=== PATIENT | male | born 1945 | race Two or more races ===

== ENCOUNTER 2021-08-25 06:40 | Outpatient (REF) | payer MEDICARE, SELFPAY ==
[2021-08-25 11:50] LABS: Alanine Aminotransferase 14 U/L (0-40); Albumin Level 4.1 g/dL (3.5-5.0); Alkaline Phosphatase 71 U/L (39-117); Anion Gap 12 (12-20); Aspartate Amino Transferase 14 U/L (5-37); Bilirubin Total 0.8 mg/dL (0.0-1.0); Blood Urea Nitrogen 17 mg/dL (9-16); Calcium 9.8 mg/dL (8.4-10.2); Carbon Dioxide 27 mmol/L (22-29); Chloride 106 mmol/L (96-108); Cholesterol 142 mg/dL; Estimated Glomerular Filt Rate > 60; Glucose Fasting 99 mg/dL (60-99); HDL Cholesterol 40 mg/dL; LDL Cholesterol Calculated 88 mg/dl; Potassium 4.6 mmol/L (3.3-5.1); Sodium 140 mmol/L (135-145); Total Protein 6.7 g/dL (6.5-8.0); Triglycerides 70 mg/dL
[2021-08-25 11:56] LABS: Appearance Urine CLEAR; Color Urine YELLOW; Glucose Urine UA NEG (NEG); Leukocyte Esterase Urine NEG (NEG); Nitrite Urine NEG (NEG); PH 6.5 (5.0-8.0); Urine Blood NEG (NEG); Urine Ketones NEG (NEG); Urine Protein NEG (NEG-TRACE)
[2021-08-25 12:15] LABS: Prostate Specific Antigen Scr 0.37 ng/mL (<0.05-4.0); TSH reflex Free T4 2.15 uIU/mL (0.32-4.0)
== END 2021-08-25 06:41 | disposition home or self-care (01) ==
LOC: HO.HMGCLDS 06:40
PROVIDERS: Visit Provider Nurse Practitioner Family
DX: Z12.5 Encounter for screening for malignant neoplasm of prostate (principal); N40.0 Benign prostatic hyperplasia without lower urinary tract symptoms; F41.9 Anxiety disorder, unspecified
CPT/HCPCS: 36415; 80053; 80061; 81003; 84153; 84443

== ENCOUNTER → 2021-12-02 11:56 | Outpatient (BNVA) | payer OTHER, SELFPAY | PROVIDERS: PCP Nurse Practitioner Family; Visit Provider Urology | DX: N40.1 Benign prostatic hyperplasia with lower urinary tract symptoms (principal); R35.1 Nocturia; R39.12 Poor urinary stream; Z79.899 Other long term (current) drug therapy | CPT/HCPCS: 99202 ==

== ENCOUNTER → 2022-02-02 08:50 | Outpatient (BNVA) | payer OTHER, SELFPAY | PROVIDERS: PCP Nurse Practitioner Family; Visit Provider Urology | DX: N40.0 Benign prostatic hyperplasia without lower urinary tract symptoms (principal); R39.12 Poor urinary stream; N40.1 Benign prostatic hyperplasia with lower urinary tract symptoms; R35.1 Nocturia | CPT/HCPCS: 52000; 99212 ==

== ENCOUNTER 2022-03-04 06:26 | Outpatient (REF) | payer OTHER, SELFPAY ==
[2022-03-04 11:59] LABS: Appearance Urine Clear; Color Urine Yellow; Glucose Urine UA Negative (Negative); Leukocyte Esterase Urine Negative (Negative); Nitrite Urine Negative (Negative); Specific Gravity - Urine 1.015 (1.005-1.025); Urine Blood Negative (Negative); Urine Ketones Negative (Negative); Urine Protein Negative (Neg-Trace)
[2022-03-04 12:05] LABS: Alanine Aminotransferase 17 U/L (0-40); Albumin Level 4.3 g/dL (3.5-5.0); Alkaline Phosphatase 78 U/L (39-117); Anion Gap 12 (12-20); Aspartate Amino Transferase 16 U/L (5-37); Bilirubin Total 0.8 mg/dL (0.0-1.0); Blood Urea Nitrogen 21 mg/dL (9-16); Calcium 9.9 mg/dL (8.4-10.2); Carbon Dioxide 27 mmol/L (22-29); Chloride 107 mmol/L (96-108); Cholesterol 151 mg/dL; Estimated Glomerular Filt Rate > 60; Glucose Fasting 99 mg/dL (60-99); HDL Cholesterol 41 mg/dL; LDL Cholesterol Calculated 100 mg/dl; Potassium 4.4 mmol/L (3.3-5.1); Sodium 142 mmol/L (135-145); Total Protein 6.7 g/dL (6.5-8.0); Triglycerides 54 mg/dL
[2022-03-04 12:30] LABS: TSH reflex Free T4 1.83 uIU/mL (0.32-4.0)
== END 2022-03-04 06:27 | disposition home or self-care (01) ==
LOC: HO.HMGCLDS 06:26
PROVIDERS: PCP Nurse Practitioner Family; Visit Provider Nurse Practitioner Family
DX: F41.9 Anxiety disorder, unspecified (principal)
CPT/HCPCS: 36415; 80053; 80061; 81003; 84443

== ENCOUNTER 2022-03-09 12:24 | Outpatient (REF) | payer OTHER, SELFPAY ==
--- NOTE | ~2022-03-09 | US_ITS ---
EXAMINATION: US PELVIS LIMITED (BLADDER) CLINICAL INFORMATION: Poor urinary stream. COMPARISON: None TECHNIQUE: Real-time imaging of the bladder. FINDINGS: BLADDER: Well distended and normal. Bilateral ureteral jets are demonstrated. Prevoid bladder volume is 289.6 mL. Postvoid bladder volume is 70.0 mL. The prostate gland protrudes into the base of the bladder and appears lobulated in contour. The prostate gland measures 4 x 3.5 x 3.6 cm. The prostate volume is 26.1 mL. US/US bladder IMPRESSION: Small 70 mL post void bladder residual.
== END 2022-03-09 12:25 | disposition home or self-care (01) ==
LOC: HO.US 12:24
PROVIDERS: Visit Provider Urology
DX: N40.1 Benign prostatic hyperplasia with lower urinary tract symptoms (principal); R39.12 Poor urinary stream
CPT/HCPCS: 76857

== ENCOUNTER → 2022-03-10 08:30 | Outpatient (BNVA) | payer OTHER, SELFPAY | PROVIDERS: PCP Nurse Practitioner Family; Visit Provider Urology | DX: N40.1 Benign prostatic hyperplasia with lower urinary tract symptoms (principal); R39.12 Poor urinary stream; R35.1 Nocturia | CPT/HCPCS: Q3014 ==

== ENCOUNTER 2022-04-12 05:42 | Day surgery (SDC) | payer OTHER, SELFPAY ==
[2022-04-05 16:47] VITALS: BMI 25.3
--- NOTE | 2022-04-09 09:17 | HO.ANESPROP2 ---
Documented by User: Taniya Juarez NP 04/09/22 09:19 HPI - Anesthesia Eval Consult details Narrative: 76yo M for ?Laser Ablation Prostate w/Green Light PMFSH Active Problems Active Problems: All Active Problems (Updated 03/03/22 @ 17:13 by Arpan Fernando, [facility]) Numbness of right hand (Acute) Weak urinary stream (Acute) Nocturia associated with benign prostatic hyperplasia (Acute) Insomnia (Acute) Right hip pain (Acute) Chest pressure (Acute) Screening PSA (prostate specific antigen) (Acute) Anxiety (Acute) BPH (benign prostatic hyperplasia) (Acute) Past Medical History Medical History (Updated 04/12/22 @ 06:24 by Quiana Vo RN) Anxiety Depression Left ankle injury Surgical History Surgical History (Updated 04/12/22 @ 06:24 by Quiana Vo RN) H/O hand surgery History of ankle surgery History of right hip replacement Social History Social History Housing: House Patient Tobacco Use Status: Never used Tobacco e-Cigarette/Vaping Use: Never Used Second Hand Smoke Exposure: No Use of substances other than those prescribed or required for medical reasons: No Are you DNR?: No Advance Directives: No Advance Directives Information Provided: Yes service: No Current occupational status: retired Cognitive needs: No Hearing needs: No Vision needs: No Meds Allergies Allergy/AdvReac Type Severity Reaction Status Date / Time No Known Allergies Allergy Verified 03/08/22 09:45 Exam Exam Date and Time: April 09, 2022 0917 Height,Weight and Vital Signs: Height 5 ft 6 in Weight 71.214 kg Pertinent Lab Results Pertinent Lab Results: Laboratory Tests 03/04/22 08:39 Sodium 142 Potassium 4.4 Chloride 107 Carbon Dioxide 27 BUN 21 H Creatinine 1.13 Narrative Narrative: EKG 10/2021 NSR @ 71 Assessment and Plan Assessment Anesthesia Assessment: Chart Reviewed Documented by User: Kacie Dial MD 04/12/22 07:54 [facility] Active Problems Active Problems: All Active Problems (Updated 03/03/22 @ 17:13 by Arpan Fernando [facility]) Numbness of right hand (Acute) Weak urinary stream (Acute) Nocturia associated with benign prostatic hyperplasia (Acute) Insomnia (Acute) Right hip pain (Acute) Chest pressure (Acute) Screening PSA (prostate specific antigen) (Acute) Anxiety (Acute) BPH (benign prostatic hyperplasia) (Acute) Denies HARPAL Past Medical History Medical History (Updated 04/12/22 @ 06:24 by Quiana Vo RN) Anxiety Depression Left ankle injury Family History Family history of problems with anesthesia: No Surgical History Surgical History (Updated 04/12/22 @ 06:24 by Quiana Vo RN) H/O hand surgery History of ankle surgery History of right hip replacement History of Problems with Anesthesia: No Social History Social History Housing: House Patient Tobacco Use Status: Never used Tobacco e-Cigarette/Vaping Use: Never Used Second Hand Smoke Exposure: No Use of substances other than those prescribed or required for medical reasons: No Are you DNR?: No Advance Directives: No Advance Directives Information Provided: Yes service: No Current occupational status: retired Cognitive needs: No Hearing needs: No Vision needs: No Meds Allergies Allergy/AdvReac Type Severity Reaction Status Date / Time No Known Allergies Allergy Verified 03/08/22 09:45 Exam Height,Weight and Vital Signs: Height 5 ft 6 in Weight 71.214 kg Vital Signs Temp Pulse Resp BP Pulse Ox O2 Del Method 04/12/22 06:40 98.2 F 94 16 145/63 H 98 Room Air Airway Mallampati Class: II TM Dist: >3cm Neck ROM: Full Partial: Lower Loose/Missing/Broken Teeth: No (Denies broken or loose teeth) Heart: RRR Lungs: CTAB Assessment and Plan Assessment Anesthesia Assessment: Anesthesia Plan Discussed Final Anesthetic Review Family History of Problems with Anesthesia: No History of Problems with Anesthesia: No NPO: Yes ASA Class: II Final Preanesthetic Review: No Changes in Pt Med Stat, Meds/Allgs Chart Reviewed, Consent Obtained/Reviewed and Anes Risks/Benef Reviewed Patient Risk: Low Procedure Risk: Low Assessment/Block/Sedation in SS: Assess/Block/Sedation-SS Anesthetic Plan Anesthetic Plan: GA Disposition: Standard PACU
[2022-04-12] VITALS (7 sets, daily range): BP systolic 132–145; BP diastolic 46–84; PULSE 71–94; RESP 16–18; TEMP 36.6–37; O2SAT 97–100; BMI 24.5
[2022-04-12] MEDS: Lactated Ringers 1,000 ML 100 ML IVCONT (06:51)
[2022-04-12] MEDS: Acetaminophen 325 MG TABLET 650 MG PO (07:33)
--- NOTE | 2022-04-12 07:35 | MHC.SHP ---
Pre-Procedural Eval Section A Date of Service: 04/12/22 The patient is an INPATIENT: No Changes since office visit: No Cold of Flu in the past 2 weeks, No New Medical Problems, No Changes in Medication and No Patient answered all questions The History & Physical has been completed within 30 days and I have reviewed it.: No Section B Chief Complaint: bph Details of Present Illness: laser prostaectomy Relevant Family History (Specify if Yes): No Relevant Social History: None Present Medications: see Short Stay Collaborative assessment Medical History: No relevant PMH History of Previous Operations: No relevant previous surgery Allergies: Allergies Allergy/AdvReac Type Severity Reaction Status Date / Time No Known Allergies Allergy Verified 03/08/22 09:45 Review of Systems Sugical H&P ROS: Negative: Constitution, Cardiovascular, Respiratory, Neurological, Psychiatric, Hem-Onc, Allergic/Immunologic, Gastrointestinal, Genitourinary, Musculoskeletal, Integumentary, Endocrine and Eyes/Ears/Nose/Throat Exam Surgical H&P Exam: Normal: HEENT, Normal: Heart, Normal: Lungs, Normal: Extremities, Normal: Abdomen, Normal: Skin and Normal: Neurological Plan Diagnosis/Plan: Unchanged (green light laser prostatectomy) I have reviewed the history and physical and performed a pertinent physical examination on my patient. No changes have occurred unless specified.
--- NOTE | 2022-04-12 08:31 | P.OP_ITS ---
Operative Note Operative Note Date of Service: 04/12/22 Narrative: PreOperative Diagnosis: Bladder outlet obstruction Post Operative Diagnosis: Bladder outlet obstruction Procedure: GreenLight Laser Enucleation of the prostate Surgeon: Dr Isael Muñoz Anesthesia: General Indications for procedure: bladder outlet obstruction History of bladder outlet obstruction. Treated with alpha-dana and other medications. Still with symptoms. On cystoscopy in office has trilobar prostate. Recommendation for prostate procedure with laser enucleation of prostate. It has been discussed. Focus was placed on development of retrograde examination which is a normal part of this procedure. Procedure: After informed consent was verified the patient was brought to the operating room and placed in a supine position. Anesthesia was administered per protocol. Patient was placed in modified dorsal lithotomy position and prepped and draped in a sterile fashion. Safety pause time-out was confirmed. Antibiotics have been given. Twenty-four Indonesian laser cystoscope was inserted per urethra. No abnormalities found the anterior posterior urethra. The bladder was filled on both ureteric orifices were seen in normal position away from our area of interest. Using a GreenLight laser settings of 80 w incisions were made at the 5 and 7 o'clock position. They were taken down and then laterally on each side. They were brought from the bladder neck down to the level of the veru. These defined the lateral aspects of the median lobe area. The median lobe was ablated and enucleated tissue removed. Once the median lobe area had been cleaned attention was directed to the lateral lobes. We started with the patient's left lateral lobe. Firstly the 05:00 o'clock groove was further developed. This was moved in the lateral position to undermine the tissue on the lateral side. Focus was then placed on the laser at the 1 o'clock position in developing a secondary groove down to the level of bladder fibers. The intervening tissue between these 2 grooves was removed with a combination of enucleation ablation working from the apex toward the bladder neck. A similar procedure was repeated on the patient's right-hand side. When this was completed debris and pieces of prostate removed from the bladder. Both ureteric orifices were reviewed again in shown to be patent in away from any areas of energy damage. The apical area was reviewed in any stray ooze was controlled. A 22 Indonesian 30 cc balloon Cuellar catheter was placed over stylet into the bladder. Clear efflux was obtained. 30 cc was placed in the balloon and gentle traction was placed. A snap was used to hold tension once the patient will be moved and transported. Once transportation its finish this novel be removed. A belladonna and opiate suppository was placed for postprocedure pain management. He tolerated procedure well was extubated in the operating and transferred in a stable condition to the recovery area. Total Power 120 kW, 19 min Pathology: Prostate tissue Drains: Cuellar catheter
[2022-04-12] MEDS: oxyCODONE HCl Immed Release 5 MG TABLET PO (08:59)
--- NOTE | 2022-04-12 10:57 | PC.NURSE ---
DISCHARGE INSTRUCTIONS GONE OVER WITH PATIENT'S SON AND PATIENT AGAIN WHEN SON ARRIVED.
== END 2022-04-12 10:57 | disposition home or self-care (01) ==
PROVIDERS: PCP Nurse Practitioner Family; Visit Provider Urology
PROC: (CPT 52648; principal; 2022-04-12 07:30)
DX: N40.1 Benign prostatic hyperplasia with lower urinary tract symptoms (principal); N32.0 Bladder-neck obstruction; R39.12 Poor urinary stream; R35.1 Nocturia
CPT/HCPCS: 52648; 88305; J1100; J1956; J2250; J2405; J3010

== ENCOUNTER → 2022-04-15 08:45 | Outpatient (BNVA) | payer OTHER, SELFPAY | PROVIDERS: PCP Nurse Practitioner Family; Visit Provider Urology | DX: N40.0 Benign prostatic hyperplasia without lower urinary tract symptoms (principal) | CPT/HCPCS: 51700; 51798 ==

== ENCOUNTER → 2022-04-16 11:28 | Outpatient (BNVA) | payer OTHER, SELFPAY | PROVIDERS: PCP Nurse Practitioner Family; Visit Provider Urology | DX: N40.0 Benign prostatic hyperplasia without lower urinary tract symptoms (principal) | CPT/HCPCS: 51702; 51798 ==

== ENCOUNTER → 2022-04-19 09:56 | Outpatient (BNVA) | payer OTHER, SELFPAY | PROVIDERS: PCP Nurse Practitioner Family; Visit Provider Urology | DX: N40.0 Benign prostatic hyperplasia without lower urinary tract symptoms (principal) | CPT/HCPCS: 51700; 51798 ==

== ENCOUNTER → 2022-05-21 10:36 | Outpatient (BNVA) | payer OTHER, SELFPAY | PROVIDERS: PCP Nurse Practitioner Family; Visit Provider Urology | DX: N39.0 Urinary tract infection, site not specified (principal); R39.15 Urgency of urination | CPT/HCPCS: Q3014 ==

== ENCOUNTER → 2022-06-29 13:10 | Outpatient (BNVA) | payer OTHER, SELFPAY | PROVIDERS: PCP Nurse Practitioner Family; Visit Provider Urology | DX: N40.1 Benign prostatic hyperplasia with lower urinary tract symptoms (principal); R39.15 Urgency of urination; R39.14 Feeling of incomplete bladder emptying | CPT/HCPCS: 51798; 99212 ==

== ENCOUNTER 2022-08-18 09:52 | Outpatient (REF) | payer OTHER, SELFPAY ==
--- NOTE | ~2022-08-18 | US_ITS ---
EXAMINATION: US RETROPERITONEAL LIMITED (RENAL ONLY) CLINICAL INFORMATION: Right flank pain. COMPARISON: None available. TECHNIQUE: Real-time imaging of the right kidney. FINDINGS: RIGHT KIDNEY: 10.4 x 5.3 x 6.1 cm (SAG x AP x TRV). The kidney is normal in size, contour, and echogenicity. Renal cortical thickness is normal. No hydronephrosis. Benign Bosniak class I hepatic cysts are present, the largest measuring 4.7 cm. No additional imaging or follow up is needed. There is a 3 mm lower pole echogenic focus present consistent with a nonobstructing calculus. US/US renal RT IMPRESSION: Nonobstructing 3 mm right lower pole calculus.
== END 2022-08-18 09:53 | disposition home or self-care (01) ==
LOC: HO.HMGCX 09:52
PROVIDERS: PCP Nurse Practitioner Family; Visit Provider Nurse Practitioner Family
DX: R10.9 Unspecified abdominal pain (principal)
CPT/HCPCS: 76775

== ENCOUNTER 2022-10-06 11:57 | Outpatient (REF) | payer OTHER, SELFPAY ==
--- NOTE | 2022-10-06 08:45 | EMG_ITS ---
Please see scanned EMG / Nerve Conduction Report. MTDD
== END 2022-10-06 11:58 | disposition home or self-care (01) ==
LOC: HO.NEURO 11:57
PROVIDERS: PCP Nurse Practitioner Family; Visit Provider Nurse Practitioner Family
DX: R20.0 Anesthesia of skin (principal); R20.2 Paresthesia of skin
CPT/HCPCS: 95885; 95913

== ENCOUNTER 2022-10-20 08:10 | Outpatient (REF) | payer OTHER, SELFPAY ==
[2022-10-20 11:33] LABS: MANUAL DIFF FLAG NO
[2022-10-20 11:36] LABS: Appearance Urine Clear; Color Urine Yellow; Glucose Urine UA Negative (Negative); Leukocyte Esterase Urine Negative (Negative); Nitrite Urine Negative (Negative); Urine Blood Negative (Negative); Urine Ketones Negative (Negative); Urine Protein Negative (Neg-Trace)
[2022-10-20 11:57] LABS: Basophils Absolute Auto 0.1 X10*3/uL (0.0-0.2); Basophils Percent Auto 0.9 % (0-2); Eosinophils Absolute Auto 0.3 X10*3/uL (0.0-0.4); Eosinophils Percent Auto 4.7 % (0-4); Hematocrit 39.7 % (42.0-52.0); Hemoglobin 13.2 g/dl (14.0-18.0); Imm Gran Abs Auto 0.02 X10*3/uL (0.00-0.03); Imm Gran Pct Auto 0.3 % (0.0-0.4); Lymphocytes Absolute Auto 1.8 X10*3/uL (1.2-4.9); Lymphocytes Percent Auto 28.8 % (20-40); Mean Corpuscular HGB Conc 33.2 g/dl (31.0-36.0); Mean Corpuscular Hemoglobin 30.5 pg (27.0-33.0); Mean Corpuscular Volume 91.7 fL (80.0-98.0); Mean Platelet Volume 10.1 fL (9.4-12.4); Monocytes Absolute Auto 0.5 X10*3/uL (0.1-1.2); Monocytes Percent Auto 7.4 % (2-11); Neutrophils Absolute Auto 3.7 x10*3/uL (2.0-8.3); Neutrophils Percent Auto 57.9 % (45-73); Platelet Count 237 X10*3/uL (160-400); Red Blood Count 4.33 X10*6/uL (4.60-5.80); Red Cell Distribution Width 12.8 % (11.0-16.0); White Blood Count 6.4 X10*3/uL (4.8-10.8)
[2022-10-20 12:30] LABS: Erythrocyte Sedimentation Rate 5 MM/HR (0-15)
[2022-10-20 12:35] LABS: Rheumatoid Factor < 13.0 IU/mL (<15.0)
[2022-10-20 12:46] LABS: Alanine Aminotransferase 16 U/L (0-40); Alkaline Phosphatase 79 U/L (39-117); Anion Gap 11 (12-20); Aspartate Amino Transferase 17 U/L (5-37); Bilirubin Total 0.8 mg/dL (0.0-1.0); Blood Urea Nitrogen 20 mg/dL (9-16); C Reactive Protein < 0.10 mg/dL (< or = 0.50); Calcium 9.4 mg/dL (8.4-10.2); Carbon Dioxide 27 mmol/L (22-29); Chloride 108 mmol/L (96-108); Estimated Glomerular Filt Rate > 60; Glucose Random 91 mg/dL (60-115); Potassium 4.8 mmol/L (3.3-5.1); Sodium 141 mmol/L (135-145); Total Protein 6.5 g/dL (6.5-8.0)
[2022-10-20 13:15] LABS: Prostate Specific Antigen 0.37 ng/mL (<0.05-4.0)
[2022-10-24 16:28] LABS: Cyclic Citrullinated Peptide <16 UNITS
[2022-10-27 13:28] LABS: Anti Nuclear Antibody Screen NEGATIVE (NEGATIVE)
== END 2022-10-20 08:11 | disposition home or self-care (01) ==
LOC: HO.HMGCLDS 08:10
PROVIDERS: Urology; PCP Nurse Practitioner Family; Visit Provider Nurse Practitioner Family
DX: Z12.5 Encounter for screening for malignant neoplasm of prostate (principal); R10.9 Unspecified abdominal pain; N40.0 Benign prostatic hyperplasia without lower urinary tract symptoms; M25.40 Effusion, unspecified joint
CPT/HCPCS: 36415; 80053; 81003; 84153; 85025; 85652; 86038; 86140; 86200; 86431

== ENCOUNTER → 2022-10-27 09:59 | Outpatient (BNVA) | payer OTHER, SELFPAY | PROVIDERS: PCP Nurse Practitioner Family; Visit Provider Urology | DX: N32.81 Overactive bladder (principal) | CPT/HCPCS: 51798; 99212 ==

== ENCOUNTER 2023-01-06 11:51 | Outpatient (AMB) | payer OTHER, SELFPAY ==
--- NOTE | 2023-01-06 11:32 | A.OFFVIS_ITS ---
Intake Intake Visit Reasons: cysto Intake Note: Patient is present for Cystoscopy Urology Med: Tolterodine Antibiotic Allergy: None Blood Thinner: None Pharmacy: [facility] Disposable Cystoscope used during Procedure LOT#: [id number] EXP: 10/08/24 Allergies No Known Allergies Allergy (Verified 10/27/22 10:14) HPI HPI Comments History of Present Illness Details Rl is a pleasant male. He is a patient of Dr. Key. He is seen for the following urologic issues. - lower urinary tract symptoms - overactive bladder Cystoscopy with glomerulation consistent with possible IC versus OAB Continue Tolterodine 4 mg Add tadalafil 5 mg Lower urinary tract symptoms Prior therapy doxazosin 8 mg with finasteride Initial symptoms include nocturia up to 3 times per night, weaker stream, does have complete bladder emptying PVR 0 PSA 08/25 - 0.4 - suggestive of tight bladder neck, 10/26 0.4 04/27 Greenlight laser - difficulty voiding post procedure with constipation PFSH Medical History Anxiety Depression Left ankle injury Surgical History H/O hand surgery History of ankle surgery History of right hip replacement Social History Housing: House Patient Tobacco Use Status: Never used Tobacco e-Cigarette/Vaping Use: Never Used Second Hand Smoke Exposure: No service: No Current occupational status: retired Cognitive needs: No Hearing needs: No Vision needs: No Review of Systems Const Denies chills and Denies fever(s) Card Reports no additional complaints and Denies syncope Resp Denies cough GI Denies abdominal pain and Denies heartburn Reports as per HPI and Denies change in libido Neuro Denies syncope Psych Denies change in libido Endo Denies change in libido Physical Exam Const General: cooperative, healthy appearing, comfortable and no acute distress Orientation/consciousness: patient oriented x3 HEENT Face and sinus: Yes normal facial exam Mouth: moist mucous membranes Neck Neck: Yes normal visual inspection, Yes full ROM and Yes trachea midline Chest Chest palpation & inspection: normal inspection of the chest Resp Effort & Inspection: normal respiratory effort, able to speak in complete sentences and no respiratory distress GI Inspection: Yes normal to inspection Back/Spine/Pelvis Cervical Spine: normal cervical lordosis Thoracic/Lumbar Spine: thoracic and lumbar spine normal to inspection Skin General skin exam: no rashes or lesions noted Neuro General: patient oriented x3, gait normal, tone normal and moves all extremities Extrem General: Yes normal to inspection and Yes capillary refill normal Office Procedures Cystoscopy Consent Discussed risk and benefit or proposed procedure with the patient. Information consent for procedure given to the patient. Discussed technical aspects, risks, benefits and alternatives in full. Addressed all of the patient's questions and concerns regarding the procedure. The patient demonstrated knowledge and understanding. They wish to proceed with this procedure. Preparation The patient was prepped in the usual manner. A asbestos microscopist was present and in the room. Genitalia was prepped with betadine solution in a sterile manner. Lidocaine Jelly 2% was placed into the urethra and 16Fr flexible Olympus cystoscope was inserted into the meatus after adequate lubrication. Procedure Meatus circumcised Urethra anterior and posterior urethra Prostatic Urethra TURP defect Bladder examination with retroflexion of cystoscope Bladder Orifices normal shape and position Bladder Capacity medium Trabeculations grade 2 Cellule Formation - Diverticulum Formation - Mucosal Erythema glomerulations with small vessels Bladder Tumor - [id number] Procedure code (CPT) selection complete Office Meds lidocaine HCl Performing Provider: Isael Muñoz MD Administered by: Lisa Zuniga RN on 01/06/23 11:36 Dose Route Admin Location Lot Number Expiration Date [facility] [employer] 10 mL intra-urethral nitrofurantoin monohyd/m-cryst 100 mg Performing Provider: Isael Muñoz MD Administered by: Lisa Zuniga RN on 01/06/23 11:36 Dose Route Admin Location Lot Number Expiration Date [facility] [employer] 100 mg PO Assessment & Plan Assessment & Plan (1) Overactive bladder: Code(s): N32.81 - Overactive bladder (2) Urinary urgency: Code(s): R39.15 - Urgency of urination Plan Trial tadalafil with tolterodine Orders: Orders AMB Cystoscopy Today N40.0 - Benign prostatic hyperplasia without lower urinary tract symptoms AMB Urinalysis Automated Today Z13.9 - Encounter for screening, unspecified Medications: New tadalafil [id number] [facility] [id number] Member [id number] 5 mg PO DAILY 90 tabs 1RF sexual activity 90 days N32.81 - Overactive bladder Patient Instructions: Imaging studies, laboratory and physical exam results were discussed and reviewed in detail. No major barriers to patient understanding were identified. An opportunity to ask questions regarding the treatment plan was provided. All questions were answered. The patient expressed understanding and agreement with the above treatment plan. The patient is aware they should contact our office by phone for worsening of their current condition or the appearance of new urologic symptoms. Compliance is encouraged with any medications and followup testing that is ordered. It is a privilege to participate in the urologic care of your patient. If you have any questions or concerns regarding treatment for the above conditions, or other urologic issues, please do not hesitate to contact me. The office telephone contact is [phone]. This note is constructed using voice recognition software. While every effort has been made to ensure accuracy justice professor errors may have been included. Yours sincerely, Dr Isael Muñoz MD, [place] [facility] - Urology Providers of Expert, Compassionate Care for the Genitourinary System Coding Level of Care Code Est Pt Level 4 (37253) Diagnoses Overactive bladder N32.81 Urinary urgency R39.15 CPT Codes Cystoscopy - CPT: 71322-[id number] ([id number])
== END 2023-01-06 13:35 | disposition home or self-care (01) ==
LOC: HO.HUSH 11:51
PROVIDERS: PCP Nurse Practitioner Family; Visit Provider Urology
DX: N32.81 Overactive bladder (principal); R39.15 Urgency of urination; N40.0 Benign prostatic hyperplasia without lower urinary tract symptoms
CPT/HCPCS: 52000

== ENCOUNTER → 2023-01-06 11:51 | Outpatient (BNVA) | payer OTHER, SELFPAY | PROVIDERS: PCP Nurse Practitioner Family; Visit Provider Urology | DX: N32.81 Overactive bladder (principal); R39.15 Urgency of urination | CPT/HCPCS: 52000 ==

== ENCOUNTER 2023-01-28 08:07 | Outpatient (REF) | payer OTHER, SELFPAY ==
[2023-01-28 11:07] LABS: MANUAL DIFF FLAG NO
[2023-01-28 11:30] LABS: Basophils Absolute Auto 0.1 X10*3/uL (0.0-0.2); Basophils Percent Auto 0.9 % (0-2); Eosinophils Absolute Auto 0.2 X10*3/uL (0.0-0.4); Eosinophils Percent Auto 3.7 % (0-4); Hemoglobin 13.1 g/dl (14.0-18.0); Imm Gran Abs Auto 0.01 X10*3/uL (0.00-0.03); Imm Gran Pct Auto 0.2 % (0.0-0.4); Lymphocytes Absolute Auto 1.9 X10*3/uL (1.2-4.9); Mean Corpuscular HGB Conc 32.8 g/dl (31.0-36.0); Mean Corpuscular Hemoglobin 30.2 pg (27.0-33.0); Mean Corpuscular Volume 92.2 fL (80.0-98.0); Mean Platelet Volume 10.1 fL (9.4-12.4); Monocytes Absolute Auto 0.5 X10*3/uL (0.1-1.2); Monocytes Percent Auto 8.4 % (2-11); Neutrophils Absolute Auto 3.1 x10*3/uL (2.0-8.3); Neutrophils Percent Auto 53.8 % (45-73); Platelet Count 209 X10*3/uL (160-400); Red Blood Count 4.34 X10*6/uL (4.60-5.80); Red Cell Distribution Width 13.2 % (11.0-16.0); White Blood Count 5.7 X10*3/uL (4.8-10.8)
[2023-01-28 12:19] LABS: Iron 74 mcg/dL (45-160); Percent Iron Saturation 31 % (15-50); Total Iron Binding Capacity 240 mcg/dL (228-428); Unsaturated Iron Binding 166 ug/dL
[2023-01-28 12:34] LABS: Ferritin 77 ng/mL (20-250)
[2023-01-30 20:39] LABS: Hemoglobin 12.8 g/dL (13.2-17.1); MCH 29.8 pg (27.0-33.0); MCV 90.9 fL (80.0-100.0); RBC 4.29 Million/uL (4.20-5.80); RDW 13.1 % (11.0-15.0)
== END 2023-01-28 08:08 | disposition home or self-care (01) ==
LOC: HO.HMGCLDS 08:07
PROVIDERS: PCP Nurse Practitioner Family; Visit Provider Nurse Practitioner Family
DX: D64.9 Anemia, unspecified (principal)
CPT/HCPCS: 36415; 82728; 83020; 83540; 85014; 85018; 85025; 85041

== ENCOUNTER 2023-02-21 10:07 | Outpatient (AMB) | payer OTHER, SELFPAY ==
[2023-02-21 10:21] VITALS: BP 132/68; PULSE 63; O2SAT 97; BMI 26.8
--- NOTE | 2023-02-21 10:21 | A.OFFPC_ITS ---
Vital Signs 02/21/23 10:21 Height 5 ft 6 in Weight 166 lb 4 oz BMI 26.8 BP 132/68 Blood Pressure Location Lt brachial Position Sitting Pulse 63 Pulse Source Pulse Oximeter Pulse Oximetry (%) 97 Oxygen Delivery Method Room Air Intake Visit Reasons: 6 month follow r/s from 01/31/23 Allergies No Known Allergies Allergy (Verified 02/21/23 12:12) Medication List - Last Reconciled 02/21/23 by GRAHAM Lopez losartan 50 mg PO BID tadalafil 5 mg PO DAILY 90 days tolterodine ER 4 mg PO DAILY 90 days Tobacco use date assessed: 02/21/23 Fall risk assessment: No Falls in past year Last assessed Fall Risk: 02/21/23 Dental Screening Dental Screen Date: 02/21/23 Did you have a dental visit in the last 12 months?: Yes Did you have a dental problem in the last 6 months where you did not have access to dental care?: No Was dental information given to patient?: Patient has dentist HPI 6 month follow r/s from 01/31/23 HPI Details HTN: BP is stable, managed with losartan 50mg bid. Will continue to monitor (pt has a cuff at home). Denies chest pain, shortness of breath, headache, dizziness, and blurred vision. Anxiety: Pt reports doing well overall, though he reports some anxiety about an upcoming flight. Denies any SI and HI. [facility] Medical History (Updated 02/21/23 @ 10:47 by GRAHAM Lopez) Anxiety Left ankle injury Depression Surgical History H/O hand surgery History of right hip replacement History of ankle surgery Social History Housing: House Patient Tobacco Use Status: Never used Tobacco e-Cigarette/Vaping Use: Never Used Second Hand Smoke Exposure: No service: No Current occupational status: retired Cognitive needs: No Hearing needs: No Vision needs: No Questionnaire Thrive Questionnaire Date Thrive assessed: 09/27/22 INESSA-7 AMB Questionnaire INESSA-7 Date INESSA - 7 assessed: 09/27/22 Source: Developed by Drs. Daniel L. MohitSadie nielsen Kurt Kroenke and colleagues, with an educational marcella from [employer]. Review of Systems Const Reports as per HPI Physical exam (Primary Care) Vital Signs: Last Vital Signs Pulse 63 02/21/23 10:21 BP 132/68 02/21/23 10:21 Pulse Ox 97 02/21/23 10:21 Oxygen Delivery Method Room Air 02/21/23 10:21 BMI result Body Mass Index 26.8 Tobacco/Smoking Status: Tobacco use Status Tobacco use date assessed 02/21/23 02/21/23 10:27 Patient Tobacco Use Status Never used Tobacco 02/21/23 10:27 e-Cigarette/Vaping Use Never Used 02/21/23 10:27 Thrive Assessment: Date of Thrive Assessment Date Thrive assessed 09/27/22 02/21/23 10:27 Const General: cooperative Orientation/consciousness: patient oriented x3 Resp Effort & Inspection: normal respiratory effort Auscultation: clear to auscultation bilaterally Cardio Rate: regular rate Rhythm: regular rhythm Heart sounds: S1 normal heart sound present and S2 normal heart sound present Neuro General: patient oriented x3 Psych Appearance: grossly normal Mental Status: mental status grossly normal Speech and movement: Normal speech and movement present Affect: normal affect Attitude: cooperative Thought process: Normal thought process present Thought content: Normal thought content present Insight: Good insight present (Psych) Judgement: Good judgement present (Psych) Assessment and Plan Assessment & Plan (1) Anxiety: Code(s): F41.9 - Anxiety disorder, unspecified Plan: Labs ordered (2) HTN (hypertension): Code(s): I10 - Essential (primary) hypertension Plan: Labs ordered Plan The patient agreed to the use of a medical legal investigator for this encounter. Scribed for GRAHAM Cabezas by Candice Reyes medical legal investigator, on 02/21/2023 at 10:45 EST. Orders: Orders Lipid Panel Today F41.9 - Anxiety disorder, unspecified, I10 - Essential (primary) hypertension TSH reflex Free T4 Today F41.9 - Anxiety disorder, unspecified, I10 - Essential (primary) hypertension Complete Blood Count Auto Diff Today F41.9 - Anxiety disorder, unspecified, I10 - Essential (primary) hypertension [place]. Panel Fast Today F41.9 - Anxiety disorder, unspecified, I10 - Essential (primary) hypertension UA CC w/rflx Micro + Cult Today F41.9 - Anxiety disorder, unspecified, I10 - Essential (primary) hypertension Coding Level of Care Code Est Pt Level 3 (73799) Diagnoses Anxiety F41.9 HTN (hypertension) I10
== END 2023-02-21 11:07 | disposition home or self-care (01) ==
PROVIDERS: PCP Nurse Practitioner Family; Visit Provider Nurse Practitioner Family
DX: F41.9 Anxiety disorder, unspecified (principal); I10 Essential (primary) hypertension
CPT/HCPCS: 99213

== ENCOUNTER 2023-04-13 11:00 | Outpatient (AMB) | payer OTHER, SELFPAY ==
--- NOTE | 2023-04-13 11:06 | A.OFFVIS_ITS ---
Intake Intake Visit Reasons: 3 month follow up Intake Note: Patient is Present for Telephone Follow Up Urology Med: Tadalafil, Tolterodine Antibiotic Allergy: None Blood Thinner: None Allergies No Known Allergies Allergy (Verified 04/13/23 11:08) Medication List - Last Reconciled 04/13/23 by Isael Muñoz MD betamethasone valerate 0.1% 1 appl topical BID losartan 50 mg PO BID tadalafil 5 mg PO DAILY 90 days tolterodine ER 4 mg PO DAILY 90 days HPI HPI Comments History of Present Illness Details Rl is a pleasant male. He is a patient of Dr. Key. He is seen for the following urologic issues. - lower urinary tract symptoms - overactive bladder Telemedicine Evaluation 15 min Consultation Outsell Brendon Video attempted Follow-up from addition of tadalafil with tolterodine for possible IC Did very well Would like to continue 6 month prescription provided 02/26 Cystoscopy with glomerulation consi stent with possible IC versus OAB Lower urinary tract symptoms Prior therapy doxazosin 8 mg with finasteride Initial symptoms include nocturia up to 3 times per night, weaker stream, does have complete bladder emptying PVR 0 PSA 08/25 - 0.4 - suggestive of tight bladder neck, 10/26 0.4 04/27 Greenlight laser - difficulty void ing post procedure with constipation PFSH Medical History Anxiety Left ankle injury Depression Surgical History H/O hand surgery History of right hip replacement History of ankle surgery Social History Housing: House Patient Tobacco Use Status: Never used Tobacco e-Cigarette/Vaping Use: Never Used Second Hand Smoke Exposure: No service: No Current occupational status: retired Cognitive needs: No Hearing needs: No Vision needs: No Review of Systems Const All systems reviewed & are unremarkable except as noted in HPI and below Reports no additional complaints Resp Reports no additional complaints GI Reports no additional complaints Reports as per HPI Musc Reports no additional complaints Physical Exam Telemedicine evaluation Appropriate responses Regular breathing rate and rhythm HEENT Head: Yes normal to inspection Ears: hearing grossly normal bilaterally Eyes General: appearance normal, both eyes and all related structures Neck Neck: Yes normal visual inspection Chest Chest palpation & inspection: normal inspection of the chest Resp Effort & Inspection: normal respiratory effort and able to speak in complete sentences Assessment & Plan Assessment & Plan (1) Overactive bladder: Code(s): N32.81 - Overactive bladder (2) Urinary urgency: Code(s): R39.15 - Urgency of urination (3) BPH (benign prostatic hyperplasia): Code(s): N40.0 - Benign prostatic hyperplasia without lower urinary tract symptoms Plan Six month follow-up Medications: Changed From tadalafil [id number] [facility] [id number] Member [id number] 5 mg PO DAILY 90 tabs 1RF sexual activity 90 days N32.81 - Overactive bladder To tadalafil 5 mg PO DAILY 90 tabs 1RF sexual activity 90 days N32.81 - Overactive bladder Refilled tolterodine ER 4 mg PO DAILY 90 caps 1RF 90 days N32.81 - Overactive bladder Patient Instructions: Imaging studies, laboratory and physical exam results were discussed and reviewed in detail. No major barriers to patient understanding were identified. An opportunity to ask questions regarding the treatment plan was provided. All questions were answered. The patient expressed understanding and agreement with the above treatment plan. The patient is aware they should contact our office by phone for worsening of their current condition or the appearance of new urologic symptoms. Compliance is encouraged with any medications and followup testing that is ordered. It is a privilege to participate in the urologic care of your patient. If you have any questions or concerns regarding treatment for the above conditions, or other urologic issues, please do not hesitate to contact me. The office telephone contact is [phone]. This note is constructed using voice recognition software. While every effort has been made to ensure accuracy cutting machine fixer errors may have been included. Yours sincerely, Dr Isael Muñoz MD, [place] [facility] - Urology Providers of Expert, Compassionate Care for the Genitourinary System Telehealth Telehealth Location of provider rendering services: practice address Location of patient: address on file Patient Identification confirmed using: Name, : Yes Telehealth method: voice only Patient verbally consented to treatment: Yes Patient verbally consented to billing insurance company: Yes Patient informed of any privacy concerns related to visit: Yes Coding Level of Care Code Tele Est Pt Level 3 (25013) Diagnoses Overactive bladder N32.81 Urinary urgency R39.15 BPH (benign prostatic hyperplasia) N40.0
== END 2023-04-13 12:09 | disposition home or self-care (01) ==
LOC: HO.HUSH 11:00
PROVIDERS: PCP Nurse Practitioner Family; Visit Provider Urology
DX: N32.81 Overactive bladder (principal); R39.15 Urgency of urination; N40.0 Benign prostatic hyperplasia without lower urinary tract symptoms
CPT/HCPCS: 99213

== ENCOUNTER → 2023-04-13 11:00 | Outpatient (BNVA) | payer OTHER, SELFPAY | PROVIDERS: PCP Nurse Practitioner Family; Visit Provider Urology ==

== ENCOUNTER 2023-09-21 15:55 | Outpatient (AMB) | payer OTHER, SELFPAY ==
[2023-09-21 16:03] VITALS: BP 118/72; PULSE 72; O2SAT 95; BMI 27.8
--- NOTE | 2023-09-21 16:03 | A.OFFPC_ITS ---
Vital Signs 09/21/23 16:03 Height 5 ft 6 in Weight 172 lb 6 oz BMI 27.8 BP 118/72 Blood Pressure Location Lt brachial Position Sitting Pulse 72 Pulse Source Pulse Oximeter Pulse Oximetry (%) 95 Oxygen Delivery Method Room Air Intake Visit Reasons: Annual PE Intake Note: Patient here for physical exam, pt would like to talk about right leg pain/swelling, having difficulty bending knee. cologuard: 2022 Allergies No Known Allergies Allergy (Verified 09/21/23 17:07) Medication List - Last Reconciled 09/21/23 by GRAHAM Lopez betamethasone valerate 0.1% 1 appl topical BID losartan 50 mg PO ONCE trazodone 100 mg PO BEDTIME PRN 90 days Tobacco use date assessed: 09/21/23 Fall risk assessment: No Falls in past year Last assessed Fall Risk: 09/21/23 Dental Screening Dental Screen Date: 09/21/23 Did you have a dental visit in the last 12 months?: Yes Did you have a dental problem in the last 6 months where you did not have access to dental care?: No Was dental information given to patient?: Patient has dentist HPI Annual PE HPI Details Pt is here for a PE. Will order labs. Cologuard is up to date. Pt sees urology for his PSA. Pt has swelling to his right calf/RLE. Will order US to r/o DVT. Pt also c/o right knee pain with swelling. Will order XR. Right flank pain reported, previous US was neg (small kidney stone noted). ? muscular, will repeat US due to Hx of kidney stones. NOTE: confusion with losartan dose, will contact pharmacy [facility] Medical History Anxiety Left ankle injury Depression Surgical History H/O hand surgery History of right hip replacement History of ankle surgery Social History Housing: House Patient Tobacco Use Status: Never used Tobacco e-Cigarette/Vaping Use: Never Used Second Hand Smoke Exposure: No service: No Current occupational status: retired Cognitive needs: No Hearing needs: No Vision needs: No Questionnaire PHQ-9 Over the last 2 weeks, how often have you been bothered by any of the following problems? 63506 - PHQ-9 Billing: Patient declined-do not bill Source: Developed by Drs. Daniel Rueda, Sadie Reynolds, Jarvis Jacques and colleagues, with an educational marcella from [employer]. Thrive Questionnaire Date Thrive assessed: 09/27/22 AUDIT C Alcohol Use Questionnaire (AUDIT-C) 1. How often do you have a drink containing alcohol?: Never 3. How often do you have six or more drinks on one occasion?: Never Total Score: 0 Score Reviewed/Action Taken: No INESSA-7 AMB Questionnaire INESSA-7 Date INESSA - 7 assessed: 09/27/22 Source: Developed by Drs. Daniel Rueda, Sadie Reynolds, Jarvis Jacques and colleagues, with an educational marcella from [employer]. INESSA-7 Assessment Billing INESSA-7 Assessment Tool: pt declined-do not bill Review of Systems Const Denies chills and Denies fever(s) Eyes Denies blurry vision ENT Denies vertigo, Denies dizziness and Denies sore throat Card Denies chest pain at rest, Denies chest pain with activity, Denies diaphoresis, Denies dyspnea and Denies dyspnea on exertion Resp Denies cough, Denies dyspnea, Denies dyspnea on exertion and Denies wheezing GI Denies abdominal pain, Denies melena, Denies hematochezia, Denies constipation, Denies diarrhea and Denies loose stools Denies hematuria Musc Denies numbness and Denies tingling Skin/Breast Denies lesions Neuro Denies vertigo, Denies dizziness, Denies numbness and Denies tingling Psych Denies anxiety, Denies depression, Denies homicidal ideation, Denies suicidal ideation and Denies other (substance abuse) Aller/Immun Denies wheezing Physical exam (Primary Care) Vital Signs: Last Vital Signs Pulse 72 09/21/23 16:03 BP 118/72 09/21/23 16:03 Pulse Ox 95 09/21/23 16:03 Oxygen Delivery Method Room Air 09/21/23 16:03 BMI result Body Mass Index 27.8 Tobacco/Smoking Status: Tobacco use Status Tobacco use date assessed 09/21/23 09/21/23 16:17 Patient Tobacco Use Status Never used Tobacco 09/21/23 16:04 e-Cigarette/Vaping Use Never Used 09/21/23 16:04 Thrive Assessment: Date of Thrive Assessment Date Thrive assessed 09/27/22 09/21/23 16:04 Const General: cooperative Nutritional Appearance: well nourished Orientation/consciousness: patient oriented x3 HENMT Head: Yes normal to inspection, Yes normocephalic and Yes atraumatic Ears: TM's normal bilaterally Eyes General: appearance normal, both eyes and all related structures Alignment and Position: alignment normal and position normal Neck Neck: Yes normal visual inspection and Yes no lymphadenopathy Thyroid: Thyroid normal Resp Effort & Inspection: normal respiratory effort Auscultation: clear to auscultation bilaterally Cardio Rate: regular rate Rhythm: regular rhythm Heart sounds: S1 normal heart sound present, S2 normal heart sound present and no murmurs GI Palpation (GI): Soft to palpation and nontender Auscultation: normal bowel sounds General: Yes CVA tenderness on the right Male General Exam: Yes normal external exam Penis: normal penis Scrotum: scrotum normal, testes descended bilaterally and no inguinal hernias Testes: no testicular mass Back/Spine/Pelvis Back: CVA tenderness Skin Rashes: no rashes Neuro General: patient oriented x3, moves all extremities, no focal motor deficits and deep tendon reflexes 2+ bilaterally Romberg Test: Negative Extrem Other: minor calf pain w palpation of right calf, swelling noted, swelling also noted to right knee. neg mccmurrays, neg lachmans, tenderness to posterior and anterior patella with extension and flexion Right lower extremity: edema Details: 1+ Left lower extremity: edema (trace) Psych Appearance: grossly normal Mental Status: mental status grossly normal Speech and movement: Normal speech and movement present Affect: normal affect Attitude: cooperative Thought process: Normal thought process present Thought content: Normal thought content present Insight: Good insight present (Psych) Judgement: Good judgement present (Psych) Assessment and Plan Assessment & Plan (1) Swelling of right lower extremity: Code(s): M79.89 - Other specified soft tissue disorders Plan: venous doppler ordered to r/o dvt (2) Right knee pain: Code(s): M25.561 - Pain in right knee Plan: xr ordered (3) Right flank pain: Code(s): R10.9 - Unspecified abdominal pain Plan: US ordered Orders: Orders US venous duplex LE RT Today M79.89 - Other specified soft tissue disorders XR knee RT 2V Today M25.561 - Pain in right knee US renal RT Today R10.9 - Unspecified abdominal pain Medications: Changed From losartan 50 mg PO BID 180 tabs 1RF To losartan 100 mg (2 x 50 mg) PO BID 180 tabs 1RF From trazodone may take up to 2 tabs at night, prn for insomnia (can cause constipation) 100 mg PO BEDTIME PRN sleep To trazodone may take up to 2 tabs at night, prn for insomnia (can cause constipation) 100 mg PO BEDTIME 90 days PRN 90 tabs 0RF sleep From losartan 100 mg (2 x 50 mg) PO BID 180 tabs 1RF To losartan 50 mg PO ONCE 90 tabs 1RF From trazodone may take up to 2 tabs at night, prn for insomnia (can cause constipation) 100 mg PO BEDTIME 90 days PRN 90 tabs 0RF sleep To trazodone 100 mg PO BEDTIME PRN 90 tabs 0RF sleep 90 days Refilled losartan 50 mg PO ONCE 90 tabs 1RF Coding Level of Care Code Est Pt Prev Care >65y(94283) Diagnoses Swelling of right lower extremity M79.89 Right knee pain M25.561 Right flank pain R10.9
== END 2023-09-21 17:40 | disposition home or self-care (01) ==
PROVIDERS: PCP Nurse Practitioner Family; Visit Provider Nurse Practitioner Family
DX: Z00.00 Encounter for general adult medical examination without abnormal findings (principal); M79.89 Other specified soft tissue disorders; M25.561 Pain in right knee; R10.9 Unspecified abdominal pain
CPT/HCPCS: 99397

== ENCOUNTER 2023-09-22 06:05 | Outpatient (REF) | payer OTHER, SELFPAY ==
[2023-09-22 10:26] LABS: MANUAL DIFF FLAG NO
[2023-09-22 10:38] LABS: Appearance Urine Clear; Color Urine Yellow; Glucose Urine UA Negative (Negative); Leukocyte Esterase Urine Negative (Negative); Nitrite Urine Negative (Negative); Specific Gravity - Urine 1.025 (1.005-1.025); Urine Blood Negative (Negative); Urine Ketones Negative (Negative); Urine Protein Negative (Neg-Trace)
[2023-09-22 10:40] LABS: Basophils Absolute Auto 0.1 X10*3/uL (0.0-0.2); Basophils Percent Auto 0.9 % (0-2); Eosinophils Absolute Auto 0.4 X10*3/uL (0.0-0.4); Eosinophils Percent Auto 5.5 % (0-4); Hematocrit 41.2 % (42.0-52.0); Hemoglobin 13.6 g/dl (14.0-18.0); Imm Gran Abs Auto 0.02 X10*3/uL (0.00-0.03); Imm Gran Pct Auto 0.3 % (0.0-0.4); Lymphocytes Absolute Auto 2.6 X10*3/uL (1.2-4.9); Lymphocytes Percent Auto 32.8 % (20-40); Mean Corpuscular Hemoglobin 30.2 pg (27.0-33.0); Mean Corpuscular Volume 91.6 fL (80.0-98.0); Mean Platelet Volume 9.6 fL (9.4-12.4); Monocytes Absolute Auto 0.6 X10*3/uL (0.1-1.2); Monocytes Percent Auto 7.4 % (2-11); Neutrophils Absolute Auto 4.3 x10*3/uL (2.0-8.3); Neutrophils Percent Auto 53.1 % (45-73); Platelet Count 243 X10*3/uL (160-400); Red Cell Distribution Width 13.2 % (11.0-16.0)
[2023-09-22 10:57] LABS: Alanine Aminotransferase 13 U/L (0-40); Albumin Level 4.1 g/dL (3.5-5.0); Alkaline Phosphatase 78 U/L (39-117); Anion Gap 8 (12-20); Aspartate Amino Transferase 21 U/L (5-37); Bilirubin Total 0.9 mg/dL (0.0-1.0); Blood Urea Nitrogen 24 mg/dL (9-16); Calcium 9.2 mg/dL (8.4-10.2); Carbon Dioxide 27 mmol/L (22-29); Chloride 109 mmol/L (96-108); Cholesterol 153 mg/dL (<200); Estimated Glomerular Filt Rate > 60; Glucose Fasting 88 mg/dL (60-99); HDL Cholesterol 37 mg/dL (>40); LDL Cholesterol Calculated 105 mg/dL (<100); Potassium 4.2 mmol/L (3.3-5.1); Sodium 140 mmol/L (135-145); Total Protein 6.9 g/dL (6.5-8.0); Triglycerides 59 mg/dL (<150)
[2023-09-22 11:00] LABS: TSH reflex Free T4 2.18 uIU/mL (0.32-4.0)
== END 2023-09-22 06:06 | disposition home or self-care (01) ==
LOC: HO.HMGCLDS 06:05
PROVIDERS: PCP Nurse Practitioner Family; Visit Provider Nurse Practitioner Family
DX: Z13.89 Encounter for screening for other disorder (principal)
CPT/HCPCS: 36415; 80053; 80061; 81003; 84443; 85025

== ENCOUNTER 2023-09-22 15:25 | Outpatient (REF) | payer OTHER, SELFPAY ==
--- NOTE | ~2023-09-22 | US_ITS ---
EXAMINATION: ULTRASOUND OF THE RIGHT KIDNEY CLINICAL INFORMATION: Right flank pain COMPARISON: Ultrasound of the right kidney 08/18/2022 TECHNIQUE: Ultrasound was limited to the right kidney only. The left kidney and the bladder were not evaluated FINDINGS: The left kidney measures 11.0 x 5.6 x 3.4 cm. Again seen are benign Bosniak class I renal cysts the largest measures 5.0 cm which require no additional imaging or follow-up. No solid renal masses are seen. No nephrolithiasis. US/US renal RT IMPRESSION: Benign Bosniak class I right renal cysts need no further imaging or follow-up. A cause for the patient's flank pain has not been found.
--- NOTE | ~2023-09-22 | US_ITS ---
EXAMINATION: US VENOUS ULTRASOUND WITH DOPPLER LOWER EXTREMITY, RIGHT CLINICAL INFORMATION: Right lower leg swelling COMPARISON: None available. TECHNIQUE: Ultrasound of the deep veins is performed from the hip to the calf with compression sonography and color and pulse Doppler assessment. Spectral analysis with color-flow imaging is performed. FINDINGS: There is normal venous compression and respiratory variation and augmented flow. The visualized common femoral vein, superficial femoral vein, profunda femoral vein, popliteal vein, and the trifurcation region shows no evidence of deep venous thrombosis. The peroneal vein was not seen. In the area of clinical concern, subcutaneous edema was noted. There is no significant popliteal fossa cyst. If the patient's symptoms persist, followup ultrasound in 5 days 7 days might be of value to exclude proximal propagation from a non-visualized calf vein. US/US venous duplex LE RT IMPRESSION: No DVT demonstrated in the right lower extremity.
--- NOTE | ~2023-09-22 | XR_ITS ---
EXAMINATION: XR KNEE, RIGHT CLINICAL INFORMATION: Patient states right knee pain, no injury. COMPARISON: None available. TECHNIQUE: AP and lateral views of the right knee. FINDINGS: Moderate joint effusion. Vascular calcifications. Tiny posterior patellar and lateral marginal osteophytes. Mild narrowing of the lateral compartment. XR/XR knee RT 2V IMPRESSION: Moderate joint effusion. Mild degenerative changes.
== END 2023-09-22 15:26 | disposition home or self-care (01) ==
LOC: HO.US 15:25
PROVIDERS: Visit Provider Nurse Practitioner Family
DX: M25.561 Pain in right knee (principal); R10.9 Unspecified abdominal pain; R60.0 Localized edema; R79.89 Other specified abnormal findings of blood chemistry
CPT/HCPCS: 36415; 73560; 76775; 80053; 80061; 81003; 84443; 85025; 93971

== ENCOUNTER 2023-10-07 08:38 | Outpatient (REF) | payer OTHER, SELFPAY ==
--- NOTE | ~2023-10-07 | XR_ITS ---
EXAMINATION: XR HIP, RIGHT CLINICAL INFORMATION: Right-sided hip pain COMPARISON: None available. TECHNIQUE: Two views of the right hip. FINDINGS: Right hip prosthesis is intact. Alignment is preserved. No underlying acute osseous abnormality. XR/XR hip RT min 2V IMPRESSION: Intact prosthesis.
== END 2023-10-07 08:39 | disposition home or self-care (01) ==
LOC: HO.HMGCX 08:38
PROVIDERS: PCP Nurse Practitioner Family; Visit Provider Nurse Practitioner Family
DX: M25.551 Pain in right hip (principal); Z96.641 Presence of right artificial hip joint
CPT/HCPCS: 73502

== ENCOUNTER 2023-10-10 07:37 | Outpatient (AMB) | payer OTHER, SELFPAY ==
--- NOTE | 2023-10-10 07:46 | MHC.PC.OV ---
Intake Visit Reasons: result review/referral Allergies No Known Allergies Allergy (Verified 09/21/23 17:07) Medication List - Last Reconciled 10/10/23 by ALEX LopezESTEPHANIA betamethasone valerate 0.1% 1 appl topical BID losartan 50 mg PO BID 90 days trazodone 100 mg PO BEDTIME PRN 90 days Tobacco use date assessed: 09/21/23 Dental Screening Dental Screen Date: 09/21/23 HPI result review/referral HPI Details Pt c/o right hip pain. He reports that the pain moves from the anterior aspect to lateral and posterior aspects. He denies any popping or clicking. Pt had an XR which has not been read yet. Pt reports recently using a lot of stairs which exacerbated the pain. Pt also reports ongoing right knee pain. XR showed moderate joint effusion, mild degenerative changes. He has been referred to PT. Denies fever, chills, and dizziness. [facility] Medical History Anxiety Left ankle injury Depression Surgical History H/O hand surgery History of right hip replacement History of ankle surgery Social History Housing: House Patient Tobacco Use Status: Never used Tobacco e-Cigarette/Vaping Use: Never Used Second Hand Smoke Exposure: No service: No Current occupational status: retired Cognitive needs: No Hearing needs: No Vision needs: No Questionnaire Thrive Questionnaire Date Thrive assessed: 09/27/22 INESSA-7 AMB Questionnaire INESSA-7 Date INESSA - 7 assessed: 09/27/22 Source: Developed by Drs. Daniel Rueda, Sadie Reynolds, Jarvis Jacques and colleagues, with an educational marcella from [employer] Review of Systems Const Reports as per HPI Physical exam (Primary Care) Tobacco/Smoking Status: Tobacco use Status Tobacco use date assessed 09/21/23 10/10/23 07:47 Patient Tobacco Use Status Never used Tobacco 10/10/23 07:47 e-Cigarette/Vaping Use Never Used 10/10/23 07:47 Thrive Assessment: Date of Thrive Assessment Date Thrive assessed 09/27/22 10/10/23 07:47 Const General: cooperative Orientation/consciousness: patient oriented x3 Neuro General: patient oriented x3 Psych Appearance: grossly normal Mental Status: mental status grossly normal Speech and movement: Clear speech present Affect: normal affect Attitude: cooperative Thought process: Normal thought process present Thought content: Normal thought content present Insight: Good insight present (Psych) Judgement: Good judgement present (Psych) Telehealth Telehealth Telehealth Platform: [facility] Location of provider rendering services: practice address Location of patient: address on file Telehealth method: video Patient verbally consented to treatment: Yes Patient verbally consented to billing insurance company: Yes Patient informed of any privacy concerns related to visit: Yes Minutes spent on Phone/Video with Pt.: 10 Assessment and Plan Assessment & Plan (1) Right hip pain: Code(s): M25.551 - Pain in right hip Plan: awaiting XR results Plan The patient agreed to the use of a product manager medical device for this encounter. Scribed for GRAHAM Cabezas by kia Spear scribe, on 10/10/2023 at 07:45 EST. Coding Level of Care Code Tele Est Pt Level 3 (88511) Diagnoses Right hip pain M25.551
== END 2023-10-10 09:08 | disposition home or self-care (01) ==
LOC: HO.HMGC 07:37
PROVIDERS: PCP Nurse Practitioner Family; Visit Provider Nurse Practitioner Family
DX: M25.551 Pain in right hip (principal)
CPT/HCPCS: 99213

== ENCOUNTER 2023-10-12 09:29 | Outpatient (AMB) | payer OTHER, SELFPAY ==
--- NOTE | 2023-10-12 09:39 | MHC.OFFVIS ---
Intake Visit Reasons: 6M PVR Intake Note: Patient is Present for PVR/ Urology Med: Tolterodine, Tadalafil Antibiotic Allergy:None Blood Thinner:None Last PVR: 0 Todays PVR:13 Allergies No Known Allergies Allergy (Verified 10/12/23 09:44) Medication List - Last Reconciled 10/12/23 by Isael Muñoz MD betamethasone valerate 0.1% 1 appl topical BID losartan 50 mg PO BID 90 days tadalafil 5 mg PO DAILY 90 days tolterodine ER 4 mg PO DAILY 90 days trazodone 100 mg PO BEDTIME PRN 90 days HPI Comments Details: Rl is a pleasant male. He is a patient of Dr. Key. He is seen for the following urologic issues. - lower urinary tract symptoms - overactive bladder Continued good response to combination tolterodine and tadalafil for possible IC Minimal PVR less than 20 cc 02/26 Cystoscopy with glomerulation consistent with possible IC versus OAB Lower urinary tract symptoms Prior therapy doxazosin 8 mg with finasteride Initial symptoms include nocturia up to 3 times per night, weaker stream, does have complete bladder emptying PVR 0 PSA 08/25 - 0.4 - suggestive of tight bladder neck, 10/26 0.4 04/27 Greenlight laser - difficulty voiding post procedure with constipation PFSH Medical History Anxiety Left ankle injury Depression Surgical History H/O hand surgery History of right hip replacement History of ankle surgery Social History Housing: House Patient Tobacco Use Status: Never used Tobacco e-Cigarette/Vaping Use: Never Used Second Hand Smoke Exposure: No service: No Current occupational status: retired Cognitive needs: No Hearing needs: No Vision needs: No Review of Systems Const Denies chills and Denies fever(s) Card Reports no additional complaints and Denies syncope Resp Denies cough GI Denies abdominal pain and Denies heartburn Reports as per HPI and Denies change in libido Neuro Denies syncope Psych Denies change in libido Endo Denies change in libido Physical Exam Const General: cooperative, healthy appearing, comfortable and no acute distress Orientation/consciousness: patient oriented x3 HEENT Face and sinus: Yes normal facial exam Mouth: moist mucous membranes Neck Neck: Yes normal visual inspection, Yes full ROM and Yes trachea midline Chest Chest palpation & inspection: normal inspection of the chest Resp Effort & Inspection: normal respiratory effort, able to speak in complete sentences and no respiratory distress GI Inspection: Yes normal to inspection Back/Spine/Pelvis Cervical Spine: normal cervical lordosis Thoracic/Lumbar Spine: thoracic and lumbar spine normal to inspection Skin General skin exam: no rashes or lesions noted Neuro General: patient oriented x3, gait normal, tone normal and moves all extremities Extrem General: Yes normal to inspection and Yes capillary refill normal Office Procedures Post Void Residual Post Residual Void Post Void Residual (PVR): 13 32963-Gbsj Void Residual by ultrasound Assessment & Plan Assessment & Plan (1) Overactive bladder: Code(s): N32.81 - Overactive bladder Category: Medical (2) BPH (benign prostatic hyperplasia): Code(s): N40.0 - Benign prostatic hyperplasia without lower urinary tract symptoms Category: Medical Plan Six-month follow-up Orders: Orders AMB Post Void Residual by ultrasound 10/12/23 N40.1 - Benign prostatic hyperplasia with lower urinary tract symptoms, R35.1 - Nocturia Medications: New tolterodine ER 4 mg PO DAILY 90 caps 1RF 90 days tadalafil 5 mg PO DAILY 90 tabs 1RF 90 days Patient Instructions: Imaging studies, laboratory and physical exam results were discussed and reviewed in detail. No major barriers to patient understanding were identified. An opportunity to ask questions regarding the treatment plan was provided. All questions were answered. The patient expressed understanding and agreement with the above treatment plan. The patient is aware they should contact our office by phone for worsening of their current condition or the appearance of new urologic symptoms. Compliance is encouraged with any medications and followup testing that is ordered. It is a privilege to participate in the urologic care of your patient. If you have any questions or concerns regarding treatment for the above conditions, or other urologic issues, please do not hesitate to contact me. The office telephone contact is [phone]. This note is constructed using voice recognition software. While every effort has been made to ensure accuracy hvac estimator errors may have been included. Yours sincerely, Dr Isael Muñoz MD, [place] [facility] - Urology Providers of Expert, Compassionate Care for the Genitourinary System Coding Level of Care Code Est Pt Level 3 (35628) Diagnoses Overactive bladder N32.81 BPH (benign prostatic hyperplasia) N40.0 CPT Codes Post Residual Void - PVR CPT Code: 19565-Sowi Void Residual by ultrasound ([id number])
== END 2023-10-12 10:12 | disposition home or self-care (01) ==
PROVIDERS: PCP Nurse Practitioner Family; Visit Provider Urology
DX: N32.81 Overactive bladder (principal); N40.0 Benign prostatic hyperplasia without lower urinary tract symptoms
CPT/HCPCS: 99213

== ENCOUNTER → 2023-10-12 09:29 | Outpatient (BNVA) | payer OTHER, SELFPAY | PROVIDERS: PCP Nurse Practitioner Family; Visit Provider Urology | DX: N40.0 Benign prostatic hyperplasia without lower urinary tract symptoms (principal); N32.81 Overactive bladder | CPT/HCPCS: 51798; 99212 ==

== ENCOUNTER 2024-01-16 10:09 | Outpatient (AMB) | payer OTHER, SELFPAY ==
[2024-01-16 10:11] VITALS: BP 136/72; PULSE 73; O2SAT 98; BMI 26.3
--- NOTE | 2024-01-16 10:11 | A.OFFPC_ITS ---
Vital Signs 01/16/24 10:11 Height 5 ft 6 in Weight 163 lb BMI 26.3 BP 136/72 Blood Pressure Location Rt brachial Position Sitting Pulse 73 Pulse Source Pulse Oximeter Pulse Oximetry (%) 98 Oxygen Delivery Method Room Air Intake Visit Reasons: Knee Pain Intake Note: pt is here for knee pain Chief Science Officer Required: No Accompanied by: Self / Same As Patient Allergies No Known Allergies Allergy (Verified 01/16/24 10:12) Medication List - Last Reconciled 01/16/24 by ALEX Lopez- losartan 50 mg PO BID 90 days tadalafil 5 mg PO DAILY 90 days tolterodine ER 4 mg PO DAILY 90 days trazodone 150 mg (1.5 x 100 mg) PO BEDTIME PRN 90 days Tobacco use date assessed: 09/21/23 Fall risk assessment: No Falls in past year Last assessed Fall Risk: 01/16/24 Dental Screening Dental Screen Date: 09/21/23 HPI Knee Pain HPI Details Pt c/o ongoing right knee pain. He had an XR which showed moderate joint effusion and mild degenerative changes. Pt is starting PT in the near future, which I look forward to. He is stretching which is improving his mobility. Pt reports insomnia. He is taking trazodone 100mg, will increase to 150mg. Pt will watch for prostate/ issues. Denies fever, chills, and dizziness. FORMERLY [facility], [facility] Medical History Anxiety Left ankle injury Depression Surgical History H/O hand surgery History of right hip replacement History of ankle surgery Social History Housing: House Patient Tobacco Use Status: Never used Tobacco e-Cigarette/Vaping Use: Never Used Second Hand Smoke Exposure: No service: No Current occupational status: retired Cognitive needs: No Hearing needs: No Vision needs: No Questionnaire PHQ-9 Over the last 2 weeks, how often have you been bothered by any of the following problems? 16091 - PHQ-9 Billing: Patient declined-do not bill Source: Developed by Drs. Daniel Rueda, Sadie Reynolds, Jarvis Jacques and colleagues, with an educational marcella from [employer]. Thrive Questionnaire Date Thrive assessed: 01/16/24 I am a: Patient What is your living situation today?: I have a steady place to live Within the past 12 months, did the food you bought not last and you didn't have the money to get more?: Never true Within the past 12 months, did you worry whether your food would run out before you got money to buy more?: Never true Do you have trouble paying for medicines?: No Do you have trouble getting transportation to medical appointments?: No Do you have trouble paying your heating and electricity bill?: No Do you have trouble taking care of your child, family member or friend?: No Do you have trouble with day-to-day activities such as bathing, preparing meals, shopping, managing finances, etc.?: No Are you currently unemployed and looking for a job?: No Are you interested in more education?: No Please select the resources that you would like help with: None Currently or been in a relationship where the following occur: No concerns reported THRIVE Score: 0 AUDIT C Alcohol Use Questionnaire (AUDIT-C) 1. How often do you have a drink containing alcohol?: Never 3. How often do you have six or more drinks on one occasion?: Never Total Score: 0 Score Reviewed/Action Taken: Yes INESSA-7 AMB Questionnaire INESSA-7 Date INESSA - 7 assessed: 01/16/24 Source: Developed by Drs. Daniel Rueda, Sadie Reynolds, Jarvis Jacques and colleagues, with an educational marcella from [employer]. INESSA-7 Assessment Billing INESSA-7 Assessment Tool: pt declined-do not bill Review of Systems Const Reports as per HPI Physical exam (Primary Care) Vital Signs: Last Vital Signs Pulse 73 01/16/24 10:11 BP 136/72 01/16/24 10:11 Pulse Ox 98 01/16/24 10:11 Oxygen Delivery Method Room Air 01/16/24 10:11 BMI result Body Mass Index 26.3 Tobacco/Smoking Status: Tobacco use Status Tobacco use date assessed 09/21/23 01/16/24 10:16 Patient Tobacco Use Status Never used Tobacco 01/16/24 10:16 e-Cigarette/Vaping Use Never Used 01/16/24 10:16 Thrive Assessment: Date of Thrive Assessment Date Thrive assessed 01/16/24 01/16/24 10:16 Currently or been in a relationship where the following occur: No concerns reported Const General: cooperative Orientation/consciousness: patient oriented x3 Resp Effort & Inspection: normal respiratory effort Auscultation: clear to auscultation bilaterally Cardio Rate: regular rate Rhythm: regular rhythm Heart sounds: S1 normal heart sound present and S2 normal heart sound present Neuro General: patient oriented x3 Extrem Other: faint swelling to right knee, able to extend and flex with minimal discomfort, - mcmurrays, - lachmans Psych Appearance: grossly normal Mental Status: mental status grossly normal Speech and movement: Normal speech and movement present Affect: normal affect Attitude: cooperative Thought process: Normal thought process present Thought content: Normal thought content present Insight: Good insight present (Psych) Judgement: Good judgement present (Psych) Assessment and Plan Assessment & Plan (1) Right knee pain: Code(s): M25.561 - Pain in right knee Plan: Starting PT in the near future (2) Insomnia: Code(s): G47.00 - Insomnia, unspecified Plan: Increasing trazodone from 100mg to 150mg, pt will watch for prostate issues Plan The patient agreed to the use of a medical superintendent for this encounter. Scribed for ALEX Cabezas-ESTEPHANIA by Candice Reyes medical superintendent, on 01/16/2024 at 10:20 EST. Medications: Changed From trazodone 100 mg PO BEDTIME 90 days PRN 90 tabs 0RF sleep To trazodone 150 mg (1.5 x 100 mg) PO BEDTIME 90 days PRN 135 tabs 0RF sleep Coding Level of Care Code Est Pt Level 3 (00401) Diagnoses Right knee pain M25.561 Insomnia G47.00
== END 2024-01-16 12:08 | disposition home or self-care (01) ==
PROVIDERS: PCP Nurse Practitioner Family; Visit Provider Nurse Practitioner Family
DX: M25.561 Pain in right knee (principal); G47.00 Insomnia, unspecified
CPT/HCPCS: 99213

== ENCOUNTER 2024-02-15 10:00 | Outpatient (RCR) | payer MEDICARE, OTHER, SELFPAY ==
--- NOTE | 2024-01-27 12:50 | MHC.PT.EP ---
[facility] [place] Office [place] Office [place] Office [address] [phone] F: [phone] F: [phone] F: [phone] F: [phone] Physical Therapy Plan of Care Date of Evaluation: 01/27/24 Date of Surgery: Diagnosis: OA of R knee, pain in R hip Assessment: Patient is a 78 year old R handed male who presents with s/s consistent with R knee OA, R hip pain. He is retired but does want to stay active around the house and in the community works with daily job demands including. Patient past medical history includes R VELVET and ankle injury. Current impairments include pain, posture, gait mechanics, ROM, strength, activity tolerance and functional mobility. Functional limitations include decreased ability to walk, stand, squat, bend, lift, carry and sleep. Patient is motivated with good rehab potential. Skilled PT will address impairments and functional limitations in order to achieve goals. Frequency and Duration: The patient will be seen 2x/week for 5 weeks Short Term Goals: I with HEP - 2 weeks min tight HS and gastroc - 3 weeks AROM 2-130 - 3 weeks Fpc Goals: Max pain with walking 10 minutes and ADL 2/10 - 5 weeks LEFS 58/80 - 5 weeks LE strength 4+/5 grossly - 5 weeks Treatment Plan: Modalities to reduce pain, spasms and effusion. Manual therapy to restore motion and function. Therapeutic exercise to improve strength and flexibility. Neuromuscular re-education for posture and balance. Therapeutic activities to return to functional activities of daily living. Electronically signed by: Karson Del Rio, PT Please sign and return to therapist. Thank you for your referral.
--- NOTE | 2024-04-06 06:48 | MHC.PT.DC ---
[facility] [place] Office [place] Office [place] Office [address] Lowry [address] [phone] F: [phone] F: [phone] F: [phone] F: [phone] Physical Therapy Discharge Report Diagnosis: OA of R knee, pain in R hip Date of Surgery: Date of Evaluation: 01/27/24 Date of Discharge: 03/12/24 Treatments to Date: 6 Cancellations to Date: No Shows to Date: Discharge Status: Independent with HEP Discharge Summary: 02/14; Pt I with HEP. Pt has an increased Q angle R knee. Pt DC with program. 02/13/24: pt progressing well. reduced pain. issued updated HEP with bands. educated in importance of alignment on aerobic equipment. 02/07/24: pt progressing well with skilled PT. reduced TTP. we will attempt to progress strength NV. 02/03/24: pt progressing well with skilled PT. no adverse reactions. we progressed hip strength and corrected alignment/form on shuttle. 01/31; Pt tender ITB. Pt has increased Q angle R knee. NV Bridge,psoas,quad set, SAQ. Pt had dif with engaging a quad set. Patient is a 78 year old R handed male who presents with s/s consistent with R knee OA, R hip pain. He is retired but does want to stay active around the house and in the community works with daily job demands including. Patient past medical history includes R VELVET and ankle injury. Current impairments include pain, posture, gait mechanics, ROM, strength, activity tolerance and functional mobility. Functional limitations include decreased ability to walk, stand, squat, bend, lift, carry and sleep. Patient is motivated with good rehab potential. Skilled PT will address impairments and functional limitations in order to achieve goals. Electronically signed by: Karson Del Rio, PT Please sign and return to therapist. Thank you for your referral.
== END 2024-04-06 06:49 | disposition home or self-care (01) ==
LOC: HO.PTCHIC 10:00
PROVIDERS: PCP Nurse Practitioner Family; Visit Provider Nurse Practitioner Family
DX: M25.551 Pain in right hip (principal); M17.11 Unilateral primary osteoarthritis, right knee
CPT/HCPCS: 97110; 97140; 97162

== ENCOUNTER 2024-04-13 09:22 | Outpatient (AMB) | payer SELFPAY ==
--- NOTE | 2024-04-13 08:54 | MHC.OFFVIS ---
Intake Visit Reasons: 6M Med Review(Tolterodine/Tadalafil) Intake Note: Patient is present for 6M MED REVIEW(TOLTERODINE/TADALAFIL) Urology Medication:TADALAFIL,TOLTERODINE Antibiotic Allergy:NONE Blood Thinner:NONE Last PSA: 10/20/2022- 0.37 Early Childhood Education Specialist Required: No Allergies No Known Allergies Allergy (Verified 04/13/24 08:55) HPI Comments Details: Rl is a pleasant male. He is a patient of Dr. Key. He is seen for the following urologic issues. - lower urinary tract symptoms - overactive bladder Telemedicine Evaluation 15 min Consultation Flazio Brendon Video attempted Follow-up for bladder instability management Continued good response to combination tolterodine and tadalafil for possible IC Reduce tolterodine to 2mg Add Naprosyn 250 mg q.h.s. 02/26 Cystoscopy with glomerulation consistent with possible IC versus OAB Encourage dietary choices Lower urinary tract symptoms Prior therapy doxazosin 8 mg with finasteride Initial symptoms include nocturia up to 3 times per night, weaker stream, does have complete bladder emptying PVR 0 PSA 08/25 - 0.4 - suggestive of tight bladder neck, 10/26 0.4 04/27 Greenlight laser - difficulty voiding post procedure with constipation PFSH Medical History Anxiety Left ankle injury Depression Surgical History H/O hand surgery History of right hip replacement History of ankle surgery Social History Housing: House Patient Tobacco Use Status: Never used Tobacco e-Cigarette/Vaping Use: Never Used Second Hand Smoke Exposure: No service: No Current occupational status: retired Cognitive needs: No Hearing needs: No Vision needs: No Review of Systems Const All systems reviewed & are unremarkable except as noted in HPI and below Reports no additional complaints Resp Reports no additional complaints GI Reports no additional complaints Reports as per HPI Musc Reports no additional complaints Physical Exam Telemedicine evaluation Appropriate responses Regular breathing rate and rhythm HEENT Head: Yes normal to inspection Ears: hearing grossly normal bilaterally Eyes General: appearance normal, both eyes and all related structures Neck Neck: Yes normal visual inspection Chest Chest palpation & inspection: normal inspection of the chest Resp Effort & Inspection: normal respiratory effort and able to speak in complete sentences Telehealth Telehealth Location of provider rendering services: practice address Location of patient: address on file Patient Identification confirmed using: Name, : Yes Telehealth method: voice only Patient verbally consented to treatment: Yes Patient verbally consented to billing insurance company: Yes Patient informed of any privacy concerns related to visit: Yes Assessment & Plan Assessment & Plan (1) BPH (benign prostatic hyperplasia): Code(s): N40.0 - Benign prostatic hyperplasia without lower urinary tract symptoms Category: Medical (2) Overactive bladder: Code(s): N32.81 - Overactive bladder Category: Medical (3) Urinary urgency: Code(s): R39.15 - Urgency of urination Category: Medical Plan Six-month follow-up Medications: New naproxen 250 mg PO BEDTIME 90 days 90 tabs 1RF pain N32.81 - Overactive bladder naproxen 250 mg PO BEDTIME 90 days 90 tabs 1RF pain N32.81 - Overactive bladder Changed From tolterodine ER 4 mg PO DAILY 90 days 90 caps 1RF To tolterodine ER 2 mg PO DAILY 90 days 90 caps 1RF Refilled tolterodine ER 2 mg PO DAILY 90 days 90 caps 1RF N32.81 - Overactive bladder tadalafil 5 mg PO DAILY 90 days 90 tabs 1RF N32.81 - Overactive bladder Patient Instructions: Imaging studies, laboratory and physical exam results were discussed and reviewed in detail. No major barriers to patient understanding were identified. An opportunity to ask questions regarding the treatment plan was provided. All questions were answered. The patient expressed understanding and agreement with the above treatment plan. The patient is aware they should contact our office by phone for worsening of their current condition or the appearance of new urologic symptoms. Compliance is encouraged with any medications and followup testing that is ordered. It is a privilege to participate in the urologic care of your patient. If you have any questions or concerns regarding treatment for the above conditions, or other urologic issues, please do not hesitate to contact me. The office telephone contact is [phone]. This note is constructed using voice recognition software. While every effort has been made to ensure accuracy panel beater errors may have been included. Yours sincerely, Dr Isael Muñoz MD, [place] [facility] - Urology Providers of Expert, Compassionate Care for the Genitourinary System Coding Level of Care Code Tele Est Pt Level 4 (59170) Diagnoses BPH (benign prostatic hyperplasia) N40.0 Overactive bladder N32.81 Urinary urgency R39.15
== END 2024-04-13 10:03 | disposition home or self-care (01) ==
LOC: HO.HUSH 09:22
PROVIDERS: PCP Nurse Practitioner Family; Visit Provider Urology
DX: N40.0 Benign prostatic hyperplasia without lower urinary tract symptoms (principal); N32.81 Overactive bladder; R39.15 Urgency of urination
CPT/HCPCS: 99214